=== PATIENT | male | born 1945 | race Caucasian/White ===

== ENCOUNTER 2017-01-31 13:02 | Inpatient (IN) | payer MEDICARE, OTHER ==
[~2017-01-31] VITALS: Ht 175.2 cm; Wt 100.4 kg
[~2017-01-31 13:02] MED LIST: AMARYL4 MG PO; ASPIRIN81 M1 PO; BACTRIM DS 8001 TA1 PO; BETAPACE80 MG PO; CALCIPOTRIENE60 GM TP; CLOBETASOL PROP15 GM TP; DAYPRO600 M1 PO; GLIPIZIDE XL5 M1 PO; HYDROCODONE BIT1 T11 PO; KEFLEX500 M1 PO; KEPPRA; LASIX40 MG PO; METFORMIN1000 MG PO; NOVOLIN 70/30 701 EA SC; NOVOLIN 70100 UNIT/1 SQ; POTASSIUM20 MEQ PO; PRAVACHOL80 MG PO; PROAIR HFA0.09 MG/AC; SPIRIVA -- 3018 MCG INH; SYMBICORT1 AE1 INH; VITAMIN D5000 UNIT PO; ZYRTEC10 MG PO; [UNRECOGNIZED DRUG - OTHER]
[2017-01-31 13:07] VITALS: BP 163/70
[2017-01-31] MEDS ORDERED: PERCOCET 325 MG1 TA2 PO (13:11)
[2017-01-31] MEDS ORDERED: OTEZLA30 MG PO (13:11)
[2017-01-31] MEDS ORDERED: CONSTULOSE10 GM/151 PO (13:11)
[2017-01-31 13:47] LABS: BASO # 0.1 10*3/uL (0.0-0.1); EOS # 0.3 10*3/uL (0.0-0.4); EOS % 3.1 % (1.0-4.0); HEMATOCRIT 42.8 % (42.0-52.0); HEMOGLOBIN 13.3 g/dl (14.0-18.0); LYMPH % 19.9 % (27.0-41.0); MEAN CELL VOLUME 90.5 fl (80.0-94.0); MEAN CORPUSCULAR HGB 28.1 pg (27.0-31.0); MEAN CORPUSCULAR HGB CONC 31.1 g/dl (33.0-37.0); MEAN PLATELET VOLUME 10.8 fl (9.6-12.3); MONO # 0.9 10*3/uL (0.1-1.0); MONO % 8.8 % (3.0-9.0); NEUT # 6.8 10*3/uL (2.3-7.9); NEUT % 66.9 % (47.0-73.0); NUCLEATED RED BLOOD CELL 0.2 % (0.0-0.0); PLATELET COUNT AUTOMATED 261 10*3/uL (130-400); RED BLOOD COUNT 4.73 10*6/uL (4.50-5.90); RED CELL DISTRI WIDTH 13.7 % (0-14.5); WHITE BLOOD COUNT 10.2 10*3/uL (4.8-10.8)
[2017-01-31 13:54] LABS: INTERNATIONAL NORM RATIO 0.9 (2.0-3.5)
[2017-01-31 14:04] LABS: ALBUMIN 3.1 gm/dl (3.1-4.5); ALKALINE PHOSPHATASE 88 U/L (45-117); BILIRUBIN, TOTAL 0.4 mg/dl (0.2-1.0); BUN 17 mg/dl (7-24); C-REACTIVE PROTEIN 5.48 MG/DL (0-0.3); CARBON DIOXIDE 32 mmol/L (21-32); CHLORIDE 98 mmol/L (98-107); CKMB 1.4 ng/ml (0.5-3.6); CPK 106 U/L (39-308); EST GLOM FILT AFRICAN AMERICAN > 60 ml/min; GLUCOSE 174 mg/dL (65-99); MAGNESIUM 1.8 mg/dL (1.5-2.1); SGOT/AST 17 IU/L (3-35); SGPT/ALT 23 U/L (12-78); SODIUM 136 mmol/L (136-145); TOTAL PROTEIN 7.9 gm/dL (6.4-8.2)
[2017-01-31 14:05] LABS: TROPONIN I < 0.015 ng/ml (<0.045)
[2017-01-31 15:49] LABS: BILIRUBIN NEGATIVE (NEGATIVE); BLOOD NEGATIVE (NEGATIVE); CLARITY SL CLOUDY (CLEAR); COLOR YELLOW (YELLOW); GLUCOSE NEGATIVE (NEGATIVE); KETONE TRACE (NEGATIVE); LEUKO ESTERASE NEGATIVE (NEGATIVE); NITRITE NEGATIVE (NEGATIVE); PH 6.5 (5.0-9.0); PROTEIN TRACE (NEGATIVE)
[2017-01-31 15:52] LABS: BACTERIA 1+; RBC 0-2 rbc/hpf (0-2); URINE REFLEX COMMENT YES (NO); WBC 0-2 wbc/hpf (0-5)
[2017-01-31 16:00] VITALS: BP 169/89
[2017-01-31 16:30] VITALS: BP 169/88
[2017-01-31 18:20] LABS: CKMB 1.4 ng/ml (0.5-3.6); CPK 103 U/L (39-308)
[2017-01-31 18:22] LABS: TROPONIN I < 0.015 ng/ml (<0.045)
[2017-01-31 20:00] VITALS: BP 176/82
[2017-02-01] VITALS: BP 160/70
[2017-02-01 00:26] LABS: CPK 97 U/L (39-308); TROPONIN I < 0.015 ng/ml (<0.045)
[2017-02-01 06:57] LABS: BASO # 0.1 10*3/uL (0.0-0.1); BASO % 0.9 % (0.0-1.0); EOS # 0.3 10*3/uL (0.0-0.4); EOS % 2.6 % (1.0-4.0); HEMATOCRIT 41.9 % (42.0-52.0); LYMPH # 2.2 10*3/uL (1.3-4.4); MEAN CELL VOLUME 89.9 fl (80.0-94.0); MEAN CORPUSCULAR HGB 27.9 pg (27.0-31.0); MEAN PLATELET VOLUME 10.9 fl (9.6-12.3); MONO # 1.1 10*3/uL (0.1-1.0); MONO % 10.6 % (3.0-9.0); NEUT # 6.3 10*3/uL (2.3-7.9); NEUT % 63.6 % (47.0-73.0); PLATELET COUNT AUTOMATED 269 10*3/uL (130-400); RED BLOOD COUNT 4.66 10*6/uL (4.50-5.90); RED CELL DISTRI WIDTH 13.8 % (0-14.5); WHITE BLOOD COUNT 9.9 10*3/uL (4.8-10.8)
[2017-02-01 07:07] LABS: CKMB 0.8 ng/ml (0.5-3.6); CPK 86 U/L (39-308)
[2017-02-01 07:08] LABS: TROPONIN I < 0.015 ng/ml (<0.045)
[2017-02-01 07:31] LABS: BUN 14 mg/dl (7-24); CHLORIDE 99 mmol/L (98-107); FREE T4 1.25 ng/dl (0.76-1.46); POTASSIUM 3.9 mmol/L (3.5-5.1); SODIUM 138 mmol/L (136-145)
[2017-02-01 07:35] LABS: HEMOGLOBIN A1c 8.4 % (4.8-5.6)
[2017-02-01 07:43] LABS: CARBON DIOXIDE 32 mmol/L (21-32); CHOLESTEROL 142 mg/dL (<200); EST GLOM FILT AFRICAN AMERICAN > 60 ml/min; GLUCOSE 202 mg/dL (65-99); HDL CHOLESTEROL 40 mg/dl (40-60); LDL CHOLESTEROL 81 mg/dL (9-159); TRIGLYCERIDES 107 mg/dl (<150); VLDL CHOLESTEROL 21 mg/dL (6-40)
[2017-02-01 08:00] VITALS: BP 164/84
[2017-02-01 12:00] VITALS: BP 137/63
[2017-02-01 16:00] VITALS: BP 132/60
[2017-02-01 20:00] VITALS: BP 145/77
[2017-02-02] VITALS: BP 137/66
[2017-02-02 08:00] VITALS: BP 160/72
[2017-02-02 12:00] VITALS: BP 149/70
[2017-02-02 16:00] VITALS: BP 129/81
[2017-02-02 20:00] VITALS: BP 167/79
[2017-02-02 23:56] VITALS: BP 170/80
[2017-02-03 08:00] VITALS: BP 150/76
[2017-02-03 12:00] VITALS: BP 122/80
[2017-02-03 16:00] VITALS: BP 111/75
[2017-02-03 20:00] VITALS: BP 146/69
[2017-02-04] VITALS: BP 149/82
[2017-02-04 08:00] VITALS: BP 153/85
[2017-02-04 09:19] LABS: BASO # 0.1 10*3/uL (0.0-0.1); BASO % 0.7 % (0.0-1.0); EOS # 0.4 10*3/uL (0.0-0.4); EOS % 3.6 % (1.0-4.0); HEMATOCRIT 46.1 % (42.0-52.0); HEMOGLOBIN 14.2 g/dl (14.0-18.0); IG # 0.1 10*3/uL (0.0-0.1); LYMPH # 2.4 10*3/uL (1.3-4.4); LYMPH % 20.9 % (27.0-41.0); MEAN CELL VOLUME 91.7 fl (80.0-94.0); MEAN CORPUSCULAR HGB 28.2 pg (27.0-31.0); MEAN CORPUSCULAR HGB CONC 30.8 g/dl (33.0-37.0); MEAN PLATELET VOLUME 9.9 fl (9.6-12.3); MONO # 1.2 10*3/uL (0.1-1.0); MONO % 10.5 % (3.0-9.0); NEUT # 7.4 10*3/uL (2.3-7.9); NEUT % 63.9 % (47.0-73.0); PLATELET COUNT AUTOMATED 311 10*3/uL (130-400); RED BLOOD COUNT 5.03 10*6/uL (4.50-5.90); RED CELL DISTRI WIDTH 13.8 % (0-14.5); WHITE BLOOD COUNT 11.5 10*3/uL (4.8-10.8)
[2017-02-04 09:36] LABS: ALBUMIN 2.8 gm/dl (3.1-4.5); ALKALINE PHOSPHATASE 76 U/L (45-117); BILIRUBIN, TOTAL 0.4 mg/dl (0.2-1.0); BUN 28 mg/dl (7-24); CARBON DIOXIDE 35 mmol/L (21-32); CHLORIDE 98 mmol/L (98-107); EST GLOM FILT AFRICAN AMERICAN > 60 ml/min; GLUCOSE 211 mg/dL (65-99); POTASSIUM 3.8 mmol/L (3.5-5.1); SGOT/AST 13 IU/L (3-35); SGPT/ALT 16 U/L (12-78); SODIUM 139 mmol/L (136-145); TOTAL PROTEIN 8.3 gm/dL (6.4-8.2)
[2017-02-04 12:00] VITALS: BP 158/76
[2017-02-04 16:00] VITALS: BP 119/58
[2017-02-04 20:00] VITALS: BP 130/71
[2017-02-05] VITALS: BP 146/77
[2017-02-05 06:40] LABS: BASO # 0.1 10*3/uL (0.0-0.1); BASO % 0.7 % (0.0-1.0); EOS # 0.6 10*3/uL (0.0-0.4); EOS % 4.7 % (1.0-4.0); HEMATOCRIT 45.1 % (42.0-52.0); HEMOGLOBIN 13.8 g/dl (14.0-18.0); IG # 0.1 10*3/uL (0.0-0.1); LYMPH # 2.9 10*3/uL (1.3-4.4); LYMPH % 21.7 % (27.0-41.0); MEAN CORPUSCULAR HGB 27.5 pg (27.0-31.0); MEAN CORPUSCULAR HGB CONC 30.6 g/dl (33.0-37.0); MEAN PLATELET VOLUME 10.8 fl (9.6-12.3); MONO # 1.4 10*3/uL (0.1-1.0); MONO % 10.1 % (3.0-9.0); NEUT # 8.4 10*3/uL (2.3-7.9); NEUT % 62.4 % (47.0-73.0); PLATELET COUNT AUTOMATED 354 10*3/uL (130-400); RED BLOOD COUNT 5.01 10*6/uL (4.50-5.90); RED CELL DISTRI WIDTH 13.7 % (0-14.5); WHITE BLOOD COUNT 13.5 10*3/uL (4.8-10.8)
[2017-02-05 07:06] LABS: BUN 25 mg/dl (7-24); CARBON DIOXIDE 37 mmol/L (21-32); CHLORIDE 98 mmol/L (98-107); EST GLOM FILT AFRICAN AMERICAN > 60 ml/min; GLUCOSE 116 mg/dL (65-99); POTASSIUM 4.4 mmol/L (3.5-5.1); SODIUM 142 mmol/L (136-145)
[2017-02-05 08:00] VITALS: BP 136/66
[2017-02-05 12:00] VITALS: BP 140/60
[2017-02-05 16:00] VITALS: BP 112/76
== END 2017-02-05 17:37 | DRG 551 ==
LOC: ED 13:02 → 4E 14:52 → EDHOLD 14:52 → 4E 15:05
PROVIDERS: Internal Medicine
PROC: 5A09357 Assistance with Respiratory Ventilation, Less than 24 Consecutive Hours, Continuous Positive Airway Pressure (ICD-10-PCS; principal; 2017-02-01)
DX: M51.06 Intervertebral disc disorders with myelopathy, lumbar region (principal); J96.01 Acute respiratory failure with hypoxia; E44.0 Moderate protein-calorie malnutrition; D89.9 Disorder involving the immune mechanism, unspecified; I48.91 Unspecified atrial fibrillation; E11.65 Type 2 diabetes mellitus with hyperglycemia; E78.5 Hyperlipidemia, unspecified; D64.9 Anemia, unspecified; M51.16 Intervertebral disc disorders with radiculopathy, lumbar region; L40.9 Psoriasis, unspecified; H54.42 Blindness, left eye, normal vision right eye; Z87.01 Personal history of pneumonia (recurrent); Z82.49 Family history of ischemic heart disease and other diseases of the circulatory system; Z83.6 Family history of other diseases of the respiratory system; Z88.8 Allergy status to other drugs, medicaments and biological substances; Z79.82 Long term (current) use of aspirin; Z79.4 Long term (current) use of insulin; Z79.899 Other long term (current) drug therapy; Z79.84 Long term (current) use of oral hypoglycemic drugs; Z68.33 Body mass index [BMI] 33.0-33.9, adult

== ENCOUNTER 2017-02-06 05:58 | Inpatient (IN) | payer MEDICARE, OTHER ==
[~2017-02-06] VITALS: Ht 180.3 cm; Wt 90.7 kg
[2017-02-06 05:58] VITALS: BP 184/98
[~2017-02-06 05:58] MED LIST changes: +CONSTULOSE10 GM/151 PO; +OTEZLA30 MG PO; +PERCOCET 325 MG1 TA2 PO
[2017-02-06 06:22] LABS: BASO # 0.1 10*3/uL (0.0-0.1); BASO % 0.7 % (0.0-1.0); EOS # 0.6 10*3/uL (0.0-0.4); EOS % 4.8 % (1.0-4.0); HEMATOCRIT 42.8 % (42.0-52.0); HEMOGLOBIN 13.6 g/dl (14.0-18.0); LYMPH # 1.9 10*3/uL (1.3-4.4); LYMPH % 14.9 % (27.0-41.0); MEAN CELL VOLUME 88.8 fl (80.0-94.0); MEAN CORPUSCULAR HGB 28.2 pg (27.0-31.0); MEAN CORPUSCULAR HGB CONC 31.8 g/dl (33.0-37.0); MEAN PLATELET VOLUME 10.5 fl (9.6-12.3); MONO # 1.2 10*3/uL (0.1-1.0); NEUT # 9.1 10*3/uL (2.3-7.9); NEUT % 70.3 % (47.0-73.0); PLATELET COUNT AUTOMATED 336 10*3/uL (130-400); RED BLOOD COUNT 4.82 10*6/uL (4.50-5.90); RED CELL DISTRI WIDTH 13.8 % (0-14.5); WHITE BLOOD COUNT 12.9 10*3/uL (4.8-10.8)
[2017-02-06 06:35] LABS: BUN 29 mg/dl (7-24); CARBON DIOXIDE 33 mmol/L (21-32); CHLORIDE 100 mmol/L (98-107); EST GLOM FILT AFRICAN AMERICAN > 60 ml/min; GLUCOSE 246 mg/dL (65-99); POTASSIUM 4.1 mmol/L (3.5-5.1); SODIUM 140 mmol/L (136-145)
[2017-02-06 06:54] LABS: BILIRUBIN NEGATIVE (NEGATIVE); BLOOD NEGATIVE (NEGATIVE); CLARITY SL CLOUDY (CLEAR); COLOR YELLOW (YELLOW); GLUCOSE NEGATIVE (NEGATIVE); KETONE NEGATIVE (NEGATIVE); LEUKO ESTERASE NEGATIVE (NEGATIVE); NITRITE NEGATIVE (NEGATIVE); PROTEIN NEGATIVE (NEGATIVE); UROBILINOGEN 0.2 E.U./dl (0.2-1.0)
[2017-02-06 07:00] LABS: URINE AMPHETAMINES < 1000 (1000ng/ml); URINE BARBITURATES < 200 (200ng/ml); URINE COCAINE < 300 (300ng/ml)
[2017-02-06 07:03] LABS: BACTERIA 1+; EPITHELIAL CELLS 0-2; URINE REFLEX COMMENT NO (NO)
[2017-02-06 08:00] VITALS: BP 159/79
[2017-02-06 16:00] VITALS: BP 156/82
[2017-02-06 20:00] VITALS: BP 158/89
[2017-02-07] VITALS: BP 157/75
== END 2017-02-07 03:46 | disposition short-term general hospital (02) | DRG 880 ==
LOC: ED 05:58 → EDHOLD 08:40 → 4E 08:58
PROVIDERS: Emergency Medicine Emergency Medical Services
DX: F05 Delirium due to known physiological condition (principal); E44.0 Moderate protein-calorie malnutrition; D89.9 Disorder involving the immune mechanism, unspecified; I48.0 Paroxysmal atrial fibrillation; E11.65 Type 2 diabetes mellitus with hyperglycemia; G95.9 Disease of spinal cord, unspecified; M48.02 Spinal stenosis, cervical region; E78.5 Hyperlipidemia, unspecified; M51.16 Intervertebral disc disorders with radiculopathy, lumbar region; H54.42 Blindness, left eye, normal vision right eye; L40.9 Psoriasis, unspecified; H91.13 Presbycusis, bilateral; R29.898 Other symptoms and signs involving the musculoskeletal system; Z82.49 Family history of ischemic heart disease and other diseases of the circulatory system; Z83.6 Family history of other diseases of the respiratory system; Z86.73 Personal history of transient ischemic attack (TIA), and cerebral infarction without residual deficits; Z79.82 Long term (current) use of aspirin; Z88.8 Allergy status to other drugs, medicaments and biological substances; Z79.4 Long term (current) use of insulin; Z79.84 Long term (current) use of oral hypoglycemic drugs; Z79.899 Other long term (current) drug therapy; Z68.27 Body mass index [BMI] 27.0-27.9, adult

== ENCOUNTER 2018-01-03 20:02 | Emergency (ER) | payer MEDICARE, OTHER ==
[~2018-01-03] VITALS: Ht 170.1 cm; Wt 104.3 kg
--- NOTE | ~2018-01-03 | EKG ---
[place], [place] ELECTROCARDIOGRAM REPORT NAME: ESE ULRICH UNIT #: [id number] ROOM: DOCTOR: IZABELLA BRAVO MD BIRTHDATE: [birth year] DOS: 01/03/2018 TIME: 2033 hours. FINDINGS: 1. Sinus tachycardia at 109 beats per minute. 2. Left anterior hemiblock. 3. An abnormal ECG. 4. No previous tracing is available for comparison. IZABELLA BRAVO MD CM:EKGRPT:ELECTROCARDIOGRAM REPORT [id number] IZABELLA BRAVO MD
[~2018-01-03 20:02] MED LIST changes: +DELTASONE20 M1 PO; +PERCOCET 5-3251 EACH PO
[2018-01-03 20:52] LABS: BASO # 0.1 10*3/uL (0.0-0.1); BASO % 1.1 % (0.0-1.0); EOS # 0.2 10*3/uL (0.0-0.4); EOS % 2.2 % (1.0-4.0); HEMATOCRIT 45.5 % (42.0-52.0); HEMOGLOBIN 13.8 g/dl (14.0-18.0); LYMPH # 1.7 10*3/uL (1.3-4.4); LYMPH % 19.3 % (27.0-41.0); MEAN CELL VOLUME 82.4 fl (80.0-94.0); MEAN CORPUSCULAR HGB CONC 30.3 g/dl (33.0-37.0); MEAN PLATELET VOLUME 11.1 fl (9.6-12.3); MONO # 0.9 10*3/uL (0.1-1.0); MONO % 10.2 % (3.0-9.0); NEUT # 5.9 10*3/uL (2.3-7.9); PLATELET COUNT AUTOMATED 244 10*3/uL (130-400); RED BLOOD COUNT 5.52 10*6/uL (4.50-5.90); RED CELL DISTRI WIDTH 17.3 % (0-14.5); WHITE BLOOD COUNT 8.7 10*3/uL (4.8-10.8)
[2018-01-03 21:06] LABS: INTERNATIONAL NORM RATIO 0.9 (2.0-3.5)
[2018-01-03 21:14] LABS: ALBUMIN 3.1 gm/dl (3.1-4.5); ALKALINE PHOSPHATASE 100 U/L (45-117); BUN 19 mg/dl (7-24); CHLORIDE 97 mmol/L (98-107); CREATININE 0.94 mg/dL (0.70-1.30); LIPASE 96 U/L (73-393); SGOT/AST 21 IU/L (3-35); SGPT/ALT 27 U/L (12-78); SODIUM 133 mmol/L (136-145); TOTAL PROTEIN 7.9 gm/dL (6.4-8.2)
[2018-01-03 21:16] LABS: TROPONIN I < 0.015 ng/ml (<0.045)
[2018-01-03 21:24] LABS: BILIRUBIN NEGATIVE (NEGATIVE); BLOOD NEGATIVE (NEGATIVE); CLARITY CLOUDY (CLEAR); COLOR YELLOW (YELLOW); GLUCOSE 3+ (NEGATIVE); KETONE NEGATIVE (NEGATIVE); LEUKO ESTERASE NEGATIVE (NEGATIVE); NITRITE NEGATIVE (NEGATIVE); PH 5.5 (5.0-9.0)
[2018-01-03 21:33] LABS: BACTERIA 1+
[2018-01-03 21:39] VITALS: BP 121/80
== END 2018-01-03 21:40 | disposition short-term general hospital (02) ==
LOC: ED 20:02
PROVIDERS: Emergency Medicine Emergency Medical Services
DX: T79.8XXA Other early complications of trauma, initial encounter (principal); F05 Delirium due to known physiological condition; E78.5 Hyperlipidemia, unspecified; I48.91 Unspecified atrial fibrillation; E11.9 Type 2 diabetes mellitus without complications; Z88.8 Allergy status to other drugs, medicaments and biological substances; Z86.73 Personal history of transient ischemic attack (TIA), and cerebral infarction without residual deficits; Z79.899 Other long term (current) drug therapy; Z79.82 Long term (current) use of aspirin; W18.39XA Other fall on same level, initial encounter

== ENCOUNTER 2018-09-14 16:25 | Emergency (ER) | payer OTHER, MEDICARE ==
[~2018-09-14] VITALS: Wt 99.8 kg
--- NOTE | ~2018-09-14 | EKG ---
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
[2018-09-14 16:54] LABS: BASO # 0.1 10*3/uL (0.0-0.1); BASO % 0.6 % (0.0-1.0); EOS # 0.1 10*3/uL (0.0-0.4); EOS % 0.9 % (1.0-4.0); HEMATOCRIT 43.3 % (42.0-52.0); LYMPH # 1.6 10*3/uL (1.3-4.4); LYMPH % 15.8 % (27.0-41.0); MEAN CELL VOLUME 88.2 fl (80.0-94.0); MEAN CORPUSCULAR HGB 28.5 pg (27.0-31.0); MEAN CORPUSCULAR HGB CONC 32.3 g/dl (33.0-37.0); MONO # 0.4 10*3/uL (0.1-1.0); MONO % 4.4 % (3.0-9.0); NEUT # 7.7 10*3/uL (2.3-7.9); NEUT % 78.1 % (47.0-73.0); PLATELET COUNT AUTOMATED 282 10*3/uL (130-400); RED BLOOD COUNT 4.91 10*6/uL (4.50-5.90); RED CELL DISTRI WIDTH 14.3 % (0-14.5); WHITE BLOOD COUNT 9.8 10*3/uL (4.8-10.8)
[2018-09-14 17:03] LABS: ACT PARTIAL THROMBO TIME 25.8 SECONDS (20.8-31.5); INTERNATIONAL NORM RATIO 0.9 (2.0-3.5)
[2018-09-14 17:10] VITALS: BP 139/73
[2018-09-14 17:18] LABS: ALBUMIN 2.9 gm/dl (3.1-4.5); ALKALINE PHOSPHATASE 89 U/L (45-117); BUN 18 mg/dl (7-24); CHLORIDE 103 mmol/L (98-107); CPK 89 U/L (39-308); CREATININE 0.84 mg/dL (0.70-1.30); POTASSIUM 4.8 mmol/L (3.5-5.1); SGOT/AST 19 IU/L (3-35); SGPT/ALT 18 U/L (12-78); SODIUM 139 mmol/L (136-145); TOTAL PROTEIN 7.5 gm/dL (6.4-8.2)
[2018-09-14 17:19] LABS: CKMB 1.1 ng/ml (0.5-3.6)
[2018-09-14 17:21] LABS: TROPONIN I < 0.015 ng/ml (<0.045)
== END 2018-09-14 17:30 | disposition short-term general hospital (02) ==
LOC: ED 16:25
PROVIDERS: Emergency Medicine
DX: I63.9 Cerebral infarction, unspecified (principal); G89.29 Other chronic pain; I48.91 Unspecified atrial fibrillation; E11.9 Type 2 diabetes mellitus without complications; E78.5 Hyperlipidemia, unspecified; Z88.8 Allergy status to other drugs, medicaments and biological substances; Z79.899 Other long term (current) drug therapy; Z79.84 Long term (current) use of oral hypoglycemic drugs; Z79.82 Long term (current) use of aspirin; Z86.73 Personal history of transient ischemic attack (TIA), and cerebral infarction without residual deficits; Z87.891 Personal history of nicotine dependence

== ENCOUNTER 2018-09-22 10:31 | Emergency (ER) | payer MEDICARE, OTHER ==
--- NOTE | ~2018-09-22 | EKG ---
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
[2018-09-22 10:59] LABS: BASO # 0.1 10*3/uL (0.0-0.1); BASO % 0.8 % (0.0-1.0); EOS # 0.3 10*3/uL (0.0-0.4); EOS % 3.5 % (1.0-4.0); HEMATOCRIT 44.1 % (42.0-52.0); HEMOGLOBIN 14.2 g/dl (14.0-18.0); LYMPH # 1.5 10*3/uL (1.3-4.4); LYMPH % 17.7 % (27.0-41.0); MEAN CELL VOLUME 89.1 fl (80.0-94.0); MEAN CORPUSCULAR HGB 28.7 pg (27.0-31.0); MEAN CORPUSCULAR HGB CONC 32.2 g/dl (33.0-37.0); MEAN PLATELET VOLUME 10.4 fl (9.6-12.3); MONO # 0.7 10*3/uL (0.1-1.0); MONO % 7.9 % (3.0-9.0); NEUT # 5.9 10*3/uL (2.3-7.9); NEUT % 69.7 % (47.0-73.0); PLATELET COUNT AUTOMATED 261 10*3/uL (130-400); RED BLOOD COUNT 4.95 10*6/uL (4.50-5.90); RED CELL DISTRI WIDTH 14.3 % (0-14.5); WHITE BLOOD COUNT 8.5 10*3/uL (4.8-10.8)
[2018-09-22 11:08] LABS: INTERNATIONAL NORM RATIO 0.9 (2.0-3.5)
[2018-09-22 11:14] LABS: ALBUMIN 2.9 gm/dl (3.1-4.5); ALKALINE PHOSPHATASE 98 U/L (45-117); BUN 9 mg/dl (7-24); CHLORIDE 98 mmol/L (98-107); POTASSIUM 3.8 mmol/L (3.5-5.1); SGOT/AST 10 IU/L (3-35); SGPT/ALT 16 U/L (12-78); SODIUM 135 mmol/L (136-145); TOTAL PROTEIN 7.8 gm/dL (6.4-8.2)
[2018-09-22 12:35] VITALS: BP 126/69
== END 2018-09-22 15:07 | disposition home or self-care (01) ==
LOC: ED 10:31
PROVIDERS: Emergency Medicine
DX: G45.9 Transient cerebral ischemic attack, unspecified (principal); I48.91 Unspecified atrial fibrillation; E78.5 Hyperlipidemia, unspecified; Z88.8 Allergy status to other drugs, medicaments and biological substances; Z79.899 Other long term (current) drug therapy; Z79.82 Long term (current) use of aspirin; Z86.73 Personal history of transient ischemic attack (TIA), and cerebral infarction without residual deficits; Z87.891 Personal history of nicotine dependence

== ENCOUNTER → 2018-10-05 | Outpatient (CLI) | payer MEDICARE, OTHER ==
[~2018-10-05] MED LIST changes: +MOBIC7.5 MG PO
[2018-10-05 15:56] LABS: INTERNATIONAL NORM RATIO 2.4 (2.0-3.5)
== END | disposition home or self-care (01) ==
LOC: LAB 14:13
PROVIDERS: Emergency Medicine
DX: Z79.01 Long term (current) use of anticoagulants (principal)

== ENCOUNTER → 2018-10-12 | Outpatient (CLI) | payer MEDICARE, OTHER ==
[2018-10-12 11:19] LABS: INTERNATIONAL NORM RATIO 2.9 (2.0-3.5)
== END | disposition home or self-care (01) ==
PROVIDERS: Emergency Medicine
DX: Z79.01 Long term (current) use of anticoagulants (principal)

== ENCOUNTER 2018-10-21 11:59 | Emergency (ER) | payer MEDICARE, OTHER ==
[~2018-10-21] VITALS: Ht 182.8 cm; Wt 99.8 kg
[~2018-10-21 11:59] MED LIST changes: -MOBIC7.5 MG PO
[2018-10-21 12:00] VITALS: BP 118/65
[2018-10-21] MEDS ORDERED: MOBIC7.5 MG PO (14:09)
== END 2018-10-21 14:13 | disposition home or self-care (01) ==
LOC: ED 11:59
DX: M16.12 Unilateral primary osteoarthritis, left hip (principal); Z88.8 Allergy status to other drugs, medicaments and biological substances; Z79.84 Long term (current) use of oral hypoglycemic drugs; Z79.82 Long term (current) use of aspirin; Z79.899 Other long term (current) drug therapy; Z87.891 Personal history of nicotine dependence

== ENCOUNTER → 2018-10-21 | Outpatient (CLI) | payer MEDICARE, OTHER ==
[2018-10-21 15:19] LABS: INTERNATIONAL NORM RATIO 2.7 (2.0-3.5)
== END | disposition home or self-care (01) ==
LOC: LAB 14:20
PROVIDERS: Emergency Medicine
DX: Z79.01 Long term (current) use of anticoagulants (principal)

== ENCOUNTER → 2018-11-16 | Outpatient (CLI) | payer MEDICARE, OTHER ==
[~2018-11-16] MED LIST changes: +MOBIC7.5 MG PO
== END | disposition home or self-care (01) ==
LOC: US 11-05 12:30
DX: I65.23 Occlusion and stenosis of bilateral carotid arteries (principal); I10 Essential (primary) hypertension; E11.9 Type 2 diabetes mellitus without complications

== ENCOUNTER → 2019-01-14 | Outpatient (CLI) | payer MEDICARE, OTHER ==
--- NOTE | ~2019-01-14 | EKG ---
[place], [place] ELECTROCARDIOGRAM REPORT NAME: ESE ULRICH UNIT #: [id number] ROOM: DOCTOR: EPIPHANY DRAFT REPORT BIRTHDATE: [address] 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
== END | disposition home or self-care (01) ==
LOC: RAD 12:01
DX: I65.21 Occlusion and stenosis of right carotid artery (principal); J43.9 Emphysema, unspecified

== ENCOUNTER 2019-01-21 10:44 | Emergency (ER) | payer OTHER ==
[~2019-01-21] VITALS: Ht 182.8 cm; Wt 98.4 kg
[2019-01-21 10:44] VITALS: BP 152/80
[2019-01-21 11:22] LABS: BASO # 0.1 10*3/uL (0.0-0.1); EOS # 0.3 10*3/uL (0.0-0.4); EOS % 3.5 % (1.0-4.0); HEMATOCRIT 42.1 % (42.0-52.0); HEMOGLOBIN 12.8 g/dl (14.0-18.0); LYMPH # 2.1 10*3/uL (1.3-4.4); LYMPH % 23.9 % (27.0-41.0); MEAN CELL VOLUME 86.6 fl (80.0-94.0); MEAN CORPUSCULAR HGB 26.3 pg (27.0-31.0); MEAN CORPUSCULAR HGB CONC 30.4 g/dl (33.0-37.0); MEAN PLATELET VOLUME 10.3 fl (9.6-12.3); MONO # 0.6 10*3/uL (0.1-1.0); MONO % 7.1 % (3.0-9.0); NEUT # 5.6 10*3/uL (2.3-7.9); NEUT % 64.3 % (47.0-73.0); PLATELET COUNT AUTOMATED 194 10*3/uL (130-400); RED BLOOD COUNT 4.86 10*6/uL (4.50-5.90); RED CELL DISTRI WIDTH 17.9 % (0-14.5); WHITE BLOOD COUNT 8.8 10*3/uL (4.8-10.8)
[2019-01-21 11:37] LABS: ALBUMIN 2.9 gm/dl (3.1-4.5); ALKALINE PHOSPHATASE 95 U/L (45-117); BUN 20 mg/dl (7-24); CHLORIDE 103 mmol/L (98-107); CREATININE 0.77 mg/dL (0.70-1.30); LIPASE 97 U/L (73-393); POTASSIUM 4.4 mmol/L (3.5-5.1); SGOT/AST 13 IU/L (3-35); SGPT/ALT 23 U/L (12-78); SODIUM 139 mmol/L (136-145); TOTAL PROTEIN 7.1 gm/dL (6.4-8.2)
== END 2019-01-21 14:20 | disposition home or self-care (01) ==
LOC: ED 10:44
PROVIDERS: Physician Assistant
DX: S39.011A Strain of muscle, fascia and tendon of abdomen, initial encounter (principal); Z87.891 Personal history of nicotine dependence; Z98.890 Other specified postprocedural states; Z79.899 Other long term (current) drug therapy; Z79.82 Long term (current) use of aspirin; Z88.8 Allergy status to other drugs, medicaments and biological substances; Z79.01 Long term (current) use of anticoagulants; W07.XXXA Fall from chair, initial encounter; Y93.89 Activity, other specified; Y92.89 Other specified places as the place of occurrence of the external cause; Y99.9 Unspecified external cause status

== ENCOUNTER 2019-02-04 13:39 | Emergency (ER) | payer MEDICARE, OTHER ==
[2019-02-04 13:39] VITALS: BP 00/00
== END 2019-02-04 13:42 | disposition expired ==
LOC: ED 13:39
DX: I46.9 Cardiac arrest, cause unspecified (principal); I48.91 Unspecified atrial fibrillation; E11.9 Type 2 diabetes mellitus without complications; E78.5 Hyperlipidemia, unspecified; M16.12 Unilateral primary osteoarthritis, left hip; Z79.899 Other long term (current) drug therapy; Z79.82 Long term (current) use of aspirin; Z87.891 Personal history of nicotine dependence; Z86.73 Personal history of transient ischemic attack (TIA), and cerebral infarction without residual deficits